=== PATIENT | female | born 2000 | race Caucasian/White ===

== ENCOUNTER 2024-08-22 15:08 | Outpatient (CLI) | payer OTHER, SELFPAY ==
--- NOTE | ~2024-08-22 | US_ITS ---
Pelvic ultrasound. Clinical History: Pelvic pain Technique: Realtime transabdominal and transvaginal scanning of the pelvis was performed. Color flow Doppler and Doppler spectral analysis were performed. Findings: The uterus is anteverted. The endometrial stripe has a thickness of 3 mm. IUD in satisfact ory position. No focal mass is identified. The right ovary measures 4.0 x 2.7 x 2.0 cm. No significant right ovarian or adnexal mass is seen. The left ovary measures 5.8 x 4.3 x 5.1 cm. There is an echogenic rounded mass in the left ovary adolfo uring 4.0 x 2.7 x 3.7 cm, suggestive of ovarian dermoid. There is moderate to large amount of mildly complex free fluid in the cul de sac. Impression: 4.0 x 2.7 x 3.7 cm rounded echogenic mass in the left ovary, which could reflect dermoid versus possi linda acute hemorrhagic cyst. Follow-up ultrasound in 6-8 weeks is recommended to reassess. Moderate to large amount of complex free fluid in the pelvis. Correlate for hemorrhagic fluid. IUD in satisfactory position. Reviewed, dictated and finalized at location . Impression: 4.0 x 2.7 x 3.7 cm rounded echogenic mass in the left ovary, which could reflec t dermoid versus possibly acute hemorrhagic cyst. Follow-up ultrasound in 6-8 w eeks is recommended to reassess. Moderate to large amount of complex free fluid in the pelvis. Correlate for hem orrhagic fluid. IUD in satisfactory position.
== END 2024-08-22 15:09 | disposition home or self-care (01) ==
LOC: MICIMG 15:11
PROVIDERS: PCP Nurse Practitioner; Visit Provider Nurse Practitioner
DX: N83.202 Unspecified ovarian cyst, left side (principal); Z97.5 Presence of (intrauterine) contraceptive device
CPT/HCPCS: 76830; 76856

== ENCOUNTER 2024-10-06 09:07 | Outpatient (CLI) | payer OTHER, SELFPAY ==
--- NOTE | ~2024-10-06 | US_ITS ---
EXAMINATION: US transvaginal DATE: 10/06/2024 09:31 INDICATION: Left ovarian cyst. TECHNIQUE: Multiple transvaginal sonographic images of the pelvis were obtained. COMPARISON: Ultrasound 08/22/2024 FINDINGS: The uterus measures 8.6 x 3.6 x 5.1 cm. There is no free fluid in the pelvis. The endometrial complex measures 2 mm in thickness. There is an intrauterine device in expected position. The right ovary me asures 4.1 x 2.5 x 3.3 cm. The left ovary measures 2.9 x 1.9 x 2.7 cm. There is normal vascular flow in the ovaries. IMPRESSION: 1. Normal ovaries. 2. Intrauterine device in expected position. Reviewed, dictated and finalized at location A. [employer]
== END 2024-10-06 09:08 | disposition home or self-care (01) ==
LOC: MICIMG 09:07
PROVIDERS: PCP Nurse Practitioner; Visit Provider Obstetrics & Gynecology Gynecology
DX: N83.202 Unspecified ovarian cyst, left side (principal); Z97.5 Presence of (intrauterine) contraceptive device
CPT/HCPCS: 76830